=== PATIENT | male | born 1990 | race Caucasian/White ===

== ENCOUNTER 2020-06-10 22:23 | Emergency (ER) | payer OTHER ==
[~2020-06-10] VITALS: Ht 91.4 cm; Wt 74.8 kg
--- NOTE | 2020-06-10 22:31 | NUR ---
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 PT TOOK XYZAL 2 TABS X 30 MINS AGO. PT DENIES SOB. FACIAL REDNESS NOTED. PT AAOX4, VSS, RESPIRATIONS EVEN AND UNLABORED ON RA W/ NAD NOTED. 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
[2020-06-10] MEDS ORDERED: methylPREDNISolone SOD SUCC 125 MG/2ML VIAL ONE (22:35)
[2020-06-10] MEDS ORDERED: FAMOTIDINE/PF INJ 20 MG/2 ML VIAL IV ONE ×2 (22:35→23:00)
[2020-06-10] MEDS ORDERED: diphenhydrAMINE HCL 50 MG/ML VIAL ONE (22:35)
--- NOTE | 2020-06-10 22:42 | NUR ---
PT MEDICATED ORDERED
[2020-06-10] MEDS ORDERED: methylPREDNISolone SOD SUCC 125 MG/2ML VIAL IV ONE (23:00)
[2020-06-10] MEDS ORDERED: diphenhydrAMINE HCL 50 MG/ML VIAL IV ONE (23:00)
[2020-06-10] MEDS ORDERED: ONDANSETRON HCL/PF 4 MG/2 ML VIAL ONE (23:46)
[2020-06-11] MEDS ORDERED: ONDANSETRON HCL/PF 4 MG/2 ML VIAL ONE (00:12)
[2020-06-11] MEDS ORDERED: ONDANSETRON HCL/PF 4 MG/2 ML VIAL IV ONE ×2 (00:30)
--- NOTE | 2020-06-11 00:45 | NUR ---
Patient discharged to home in stable condition. Written and verbal after care instructions given. Patient verbalizes understanding of instruction. IV removed. Catheter intact and site benign. Pressure and 4x4 applied to site. No bleeding noted.
[2020-06-11 00:47] VITALS: BP 129/75
== END 2020-06-11 00:47 | disposition home or self-care (01) ==
LOC: ER 22:23
DX: T78.1XXA Other adverse food reactions, not elsewhere classified, initial encounter (principal); R11.2 Nausea with vomiting, unspecified; Z91.018 Allergy to other foods; Z91.013 Allergy to seafood; X58.XXXA Exposure to other specified factors, initial encounter
CPT/HCPCS: 96374; 96375 ×2; 96376; 99284; J1200; J2405 ×2; J2930; J3490